=== PATIENT | male | born 1965 | race Caucasian/White ===

== ENCOUNTER → 2024-06-27 10:53 | Outpatient (BNVA) | payer OTHER, SELFPAY | PROVIDERS: PCP Internal Medicine Geriatric Medicine; Visit Provider Internal Medicine | DX: S20.211A Contusion of right front wall of thorax, initial encounter (principal); W01.198A Fall on same level from slipping, tripping and stumbling with subsequent striking against other object, initial encounter | CPT/HCPCS: 71101; 99203 ==

== ENCOUNTER → 2024-08-03 10:05 | Outpatient (BNVA) | payer OTHER, SELFPAY | PROVIDERS: PCP Internal Medicine Geriatric Medicine; Visit Provider Internal Medicine | DX: S20.211D Contusion of right front wall of thorax, subsequent encounter (principal); W01.198D Fall on same level from slipping, tripping and stumbling with subsequent striking against other object, subsequent encounter | CPT/HCPCS: 99213 ==

== ENCOUNTER 2024-08-05 22:02 | Emergency (ER) | payer OTHER, SELFPAY ==
[2024-08-05 22:21] VITALS: BP 121/84; PULSE 89; RESP 20; TEMP 36.9; O2SAT 97; BMI 47.1
[2024-08-05] MEDS: Doxycycline Monohydrate 100 MG CAPSULE PO (23:03)
[2024-08-05] MEDS: cephALEXin 500 MG CAPSULE PO (23:03)
[2024-08-05] MEDS: Lidocaine HCl 1 % MPF 5 ML VIAL INFILTRATI (23:03)
--- NOTE | 2024-08-05 23:10 | PC.NURSE ---
this rn assumed care of pt from previous rn @ 2300. pt medicated prior to discharge provided with work note and discharge packet verbalized understanding of discharge plan ambulatory at discharge
[2024-08-05 23:11] VITALS: BP 121/84; PULSE 89; RESP 20; TEMP 36.9; O2SAT 97
--- NOTE | 2024-08-06 01:47 | ED_ITS ---
HPI - Skin/Abscess/Foreign Bdy General Chief complaint: Skin/Abscess/Foreign Body Stated complaint: cyst left testicle Time Seen by Provider: 08/05/24 22:29 Source: patient Mode of arrival: ambulatory Limitations: no limitations History of Present Illness ED Provider: HPI narrative: Patient noticed small ingrown hair on the left side of the scrotum few days ago comes here with increased swelling and pain no fever no chills no history of similar abscesses in the past Related Data Previous Rx's ?Medication ?Instructions ?Recorded cephalexin 500 mg capsule 500 mg PO QID 10 days #40 caps 08/05/24 doxycycline hyclate 100 mg tablet 100 mg PO BID #20 tabs 08/05/24 Allergies Allergy/AdvReac Type Severity Reaction Status Date / Time No Known Allergies Allergy Verified 08/05/24 22:24 Review of Systems 2 Review of Systems: Yes all other systems are reviewed and are negative PMFSH Social History Social History Advance Directives: No Advance Directives Information Provided: Yes Physical Exam 2 Vital Signs: Vital Signs: Last Vital Signs Temp 98.5 F 08/05/24 23:11 Pulse 89 08/05/24 23:11 Resp 20 08/05/24 23:11 BP 121/84 08/05/24 23:11 Pulse Ox 97 08/05/24 23:11 O2 Del Method Room Air 08/05/24 23:11 BMI result Body Mass Index 47.1 : Male genitals images: 1. 2 x 3 cm indurated area testicle separate epididymis nontender Medications Administered Discontinued Medications Generic Name Dose Route Start Last Admin Trade Name Freq PRN Reason Stop Dose Admin Cephalexin HCl 500 mg 08/05/24 22:38 08/05/24 23:03 Cephalexin 500 Mg Capsule PO 08/05/24 22:39 500 mg ONCE ONE Administration Doxycycline Monohydrate 100 mg 08/05/24 22:38 08/05/24 23:03 Doxycycline Monohydrate 100 Mg Capsule PO 08/05/24 22:39 100 mg ONCE ONE Administration Lidocaine HCl 5 ml 08/05/24 22:38 08/05/24 23:03 Lidocaine Hcl 1 % Mpf 5 Ml Vial INFILTRATI 08/05/24 22:39 5 ml ONCE ONE Administration Procedures Abscess I/D Site: scrotum Side (if applicable): left Local Anesthetic: lidocaine 1% Amount of anesthesia used (mL): 3 Technique: incised with blade Amount of fluid expressed (mL): 1 Sent for culture/gram staining?: No Irrigation: No Packing used?: iodoform Discharge Plan Discharge Clinical Impression: Abscess of scrotal wall Patient Disposition: Home, Self-Care Instructions: Abscess Incision and Drainage (DC) Additional Instructions: Local care as advised Packing removal in 2 days Take antibiotic as prescribed Follow up with your PCP if not better Prescriptions: New cephalexin 500 mg capsule 500 mg PO QID 10 Days Qty: 40 0RF doxycycline hyclate 100 mg tablet 100 mg PO BID Qty: 20 0RF Stand Alone Forms: Work/School Release Interventions: ED Discharge Assessment Last Done: 08/05/24 23:11 Discharge Date/Time: 08/05/24 23:12 Print Language: Pakistani
== END 2024-08-05 23:12 | disposition home or self-care (01) ==
PROVIDERS: Emergency Provider Internal Medicine; PCP Physician Assistant Medical
DX: N49.2 Inflammatory disorders of scrotum (principal)
CPT/HCPCS: 55100; 99282; 99283; 99284; 99292; J2003

== ENCOUNTER 2024-08-07 13:39 | Emergency (ER) | payer OTHER, SELFPAY ==
--- NOTE | ~2024-08-07 | CT_ITS ---
EXAMINATION: CT PELVIS WITH CONTRAST CLINICAL INFORMATION: Left-sided scrotal abscess COMPARISON: None available. TECHNIQUE: Helical scanning was performed with submillimeter collimation through the pelvis with the use of oral contrast and during bolus intravenous injection of 85 mL of Omnipaque 350 intravenous contrast. Sagittal and coronal multiplanar 2-D reconstructions were obtained. This CT examination was performed using dose optimization techniques as appropriate, variously including the following: *Automated exposure control *Adjustment of mA and/or kV according to patient size (this includes techniques or standardized protocols for targeted exams where dose is matched to indication/reason for exam; i.e. extremities or head) *Use of iterative reconstruction technique DLP: 445 mGy-cm FINDINGS: PELVIS: There is no pelvic mass. No focal inflammation or fluid collection. No abscess. There are scattered diverticula of the sigmoid and left colon but no evidence of diverticulitis. No acute changes of the bowel. Bladder unremarkable. No pelvic lymphadenopathy or mass. Small volume of ossifications of the wall of the distal aorta and iliac arteries. No aneurysm. No abnormal enhancing lesion. No inguinal or ventral wall hernia. OSSEOUS STRUCTURES: Mild degenerative changes lower lumbar spine. No acute osseous abnormality. CT/CT pelvis w IV con IMPRESSION: 1. No acute abnormality of the pelvis. No abscess. 2. Diverticulosis of the colon. No acute change of the bowel. Electronically signed by: Jordan Bueno MD 08/07/2024 05:54 PM [facility]
--- NOTE | ~2024-08-07 | US_ITS ---
EXAMINATION: US SCROTUM CLINICAL INFORMATION: Left testicular swelling.. COMPARISON: None available. TECHNIQUE: A sonogram of the scrotum was performed assessing barclay-scale appearance and color Doppler flow. Spectral Doppler analysis of the arterial and venous flow were performed in the testes bilaterally. FINDINGS: RIGHT: Right testicle measures 4.4 x 2.6 x 3.4 cm, volume 20.1 mL. No focal testicular parenchymal lesions are visualized. Spectral Doppler analysis of the arterial and venous flow is normal in the right testis. Right epididymal head is normal in size. No right hydrocele or varicocele is seen. Right epididymal Doppler flow is normal. LEFT: Left testicle measures 3.9 x 2.3 x 2.8 cm, volume 13.0 mL. No focal testicular parenchymal lesions are visualized. Spectral Doppler analysis of the arterial and venous flow is normal in the left testis. Left epididymal head is normal in size. There is anechoic cyst in the apical head measuring 0.3 x 0.4 x 0.3 cm No left hydrocele or varicocele is seen. Left epididymal Doppler flow is normal. US/US scrotum doppler IMPRESSION: 1. Small left epididymal head cyst. 2. The testes and epididymis are unremarkable. Electronically signed by: Vernon Cody MD 08/07/2024 07:11 PM [facility]
--- NOTE | ~2024-08-07 | US_ITS ---
EXAMINATION: US SCROTUM CLINICAL INFORMATION: Left testicular swelling.. COMPARISON: None available. TECHNIQUE: A sonogram of the scrotum was performed assessing barclay-scale appearance and color Doppler flow. Spectral Doppler analysis of the arterial and venous flow were performed in the testes bilaterally. FINDINGS: RIGHT: Right testicle measures 4.4 x 2.6 x 3.4 cm, volume 20.1 mL. No focal testicular parenchymal lesions are visualized. Spectral Doppler analysis of the arterial and venous flow is normal in the right testis. Right epididymal head is normal in size. No right hydrocele or varicocele is seen. Right epididymal Doppler flow is normal. LEFT: Left testicle measures 3.9 x 2.3 x 2.8 cm, volume 13.0 mL. No focal testicular parenchymal lesions are visualized. Spectral Doppler analysis of the arterial and venous flow is normal in the left testis. Left epididymal head is normal in size. There is anechoic cyst in the apical head measuring 0.3 x 0.4 x 0.3 cm No left hydrocele or varicocele is seen. Left epididymal Doppler flow is normal. US/US scrotum IMPRESSION: 1. Small left epididymal head cyst. 2. The testes and epididymis are unremarkable. Electronically signed by: Vernon Cody MD 08/07/2024 07:11 PM EST
[2024-08-07 13:44] VITALS: BP 116/82; PULSE 86; RESP 16; TEMP 36.6; O2SAT 95; BMI 35.1
--- NOTE | 2024-08-07 13:55 | ED_ITS ---
HPI - General Adult General Chief complaint: Skin/Abscess/Foreign Body Stated complaint: Abscess Time Seen by Provider: 08/07/24 15:37 Related Data Previous Rx's ?Medication ?Instructions ?Recorded cephalexin 500 mg capsule 500 mg PO QID 10 days #40 caps 08/05/24 doxycycline hyclate 100 mg tablet 100 mg PO BID #20 tabs 08/05/24 Allergies Allergy/AdvReac Type Severity Reaction Status Date / Time No Known Allergies Allergy Verified 08/07/24 13:55 [facility] Social History Social History Alcohol intake: current Alcohol intake frequency: a few times a month Smoked in Last 30 Days: No Use of substances other than those prescribed or required for medical reasons: No Advance Directives: No Advance Directives Information Provided: No Do you have a plan to hurt others: No Plan Physical Exam ED Vital Signs: Vital Signs - 24 hr 08/07/24 13:44 08/07/24 15:49 08/07/24 18:30 Temperature 97.9 F 98.1 F 97.8 F Pulse Rate 86 73 69 Respiratory Rate 16 18 18 Blood Pressure 116/82 129/80 106/75 Pulse Oximetry 95 98 99 Oxygen Delivery Method Room Air Room Air Room Air BMI result Body Mass Index 35.1 Course Course Course Narrative: RME, this is a rapid medical exam performed by Oleg Mcnamara please refer to primary provider for complete H&P- 59-year-old male presents for evaluation of a left scrotal abscess. He was seen here 2 days ago and had an I and D. He followed up with his PCP day and was sent back for further evaluation. The patient is taking doxycycline and cephalexin without improvement. He reports that he feels like the abscess is traveling up the scrotum. Plan for labs, urinalysis, CT scan of the of the pelvis with IV contrast Medications Administered Discontinued Medications Generic Name Dose Route Start Last Admin Trade Name Freq PRN Reason Stop Dose Admin Hydromorphone HCl 0.5 mg 08/07/24 15:55 08/07/24 16:28 Hydromorphone Hcl 0.5 Mg/0.5 Ml Syringe IVPUSH 08/07/24 15:56 Not Given ONCE ONE Protocol Iohexol 100 ml 08/07/24 16:06 08/07/24 16:06 Iohexol 350 Mg/Ml 100 Ml Infus..Btl IV 08/07/24 16:07 85 ml ONCE ONE Administration Medical Decision Making Lab Data 08/07/24 15:16 08/07/24 15:16 Labs: Lab Results 08/07/24 08/07/24 Range/Units 15:16 15:23 WBC 5.9 (4.8-10.8) X10*3/uL RBC 4.96 (4.60-5.80) X10*6/uL Hgb 14.1 (14.0-18.0) g/dl Hct 42.7 (42.0-52.0) % MCV 86.1 (80.0-98.0) fL MCH 28.4 (27.0-33.0) pg MCHC 33.0 (31.0-36.0) g/dl RDW 13.6 (11.0-16.0) % Plt Count 192 (160-400) X10*3/uL MPV 9.9 (9.4-12.4) fL Immature Gran % (Auto) 0.3 (0.0-0.4) % Neut % (Auto) 61.7 (45-73) % Lymph % (Auto) 25.3 (20-40) % [place] % (Auto) 9.1 (2-11) % Eos % (Auto) 2.9 (0-4) % Baso % (Auto) 0.7 (0-2) % Lymph # (Auto) 1.5 (1.2-4.9) X10*3/uL [place] # (Auto) 0.5 (0.1-1.2) X10*3/uL Eos # (Auto) 0.2 (0.0-0.4) X10*3/uL Baso # (Auto) 0.0 (0.0-0.2) X10*3/uL Abs Immat Gran (auto) 0.02 (0.00-0.03) X10*3/uL Absolute Neuts (auto) 3.7 (2.0-8.3) x10*3/uL Absolute Nucleated RBC 0.000 (0.0-0.012) X10*3/uL Nucleated RBC % (auto) 0.0 (0.0-0.2) /100WBC Sodium 140 (135-145) mmol/L Potassium 4.1 (3.3-5.1) mmol/L Chloride 108 (96-108) mmol/L Carbon Dioxide 25 (22-29) mmol/L Anion Gap 11 L (12-20) BUN 18 H (9-16) mg/dL Creatinine 1.03 (0.5-1.4) mg/dL Estim Creat Clear Calc 94.6 Estimated GFR > 60 Random Glucose 106 (60-115) mg/dL Lactic Acid 0.7 (0.5-2.0) mmol/L Calcium 10.0 (8.4-10.2) mg/dL Total Bilirubin 0.2 (0.0-1.0) mg/dL AST 29 (5-37) U/L ALT 42 H (0-40) U/L Alkaline Phosphatase 89 (39-117) U/L Total Protein 7.3 (6.5-8.0) g/dL Albumin 4.3 (3.5-5.0) g/dL Lipase 25 (8-78) U/L Urine Color Dark Yellow Urine Appearance Clear Urine pH 5.0 (5.0-9.0) Ur Specific [place] >= 1.030 H (1.005-1.025) Urine Protein Trace (Neg-Trace) mg/dL Urine Glucose (UA) Negative (Negative) mg/dL Urine Ketones Trace (Negative) mg/dL Urine Blood Negative (Negative) Urine Nitrite Negative (Negative) Ur Leukocyte Esterase Negative (Negative) Urine RBC 0-2 (0-2) /HPF Urine WBC 0-5 (0-5) /HPF Ur Squamous Epith Cells 0-2 (0-2) /HPF Urine Bacteria None Seen (None Seen) Hyaline Casts 0-2 (0-2) /LPF Discharge Plan Discharge Clinical Impression: Cellulitis, Abscess of skin or subcutaneous tissue Patient Disposition: Home, Self-Care Instructions: Cellulitis (ED), Abscess Follow-up (ED), Abscess Incision and Drainage (DC), Warm Compress or Soak (ED) Additional Instructions: warm soak and elevate. If he develops fever worsening condition please come back to the ED immediately. Prescriptions: No Action cephalexin 500 mg capsule 500 mg PO QID 10 Days Qty: 40 0RF doxycycline hyclate 100 mg tablet 100 mg PO BID Qty: 20 0RF Referrals: Garcia Stoddard PA [Primary Care Provider] - 2 days Stand Alone Forms: Work/School Release Print Language: Serbian
[2024-08-07 15:24] LABS: MANUAL DIFF FLAG NO
[2024-08-07 15:28] LABS: Basophils Percent Auto 0.7 % (0-2); Eosinophils Absolute Auto 0.2 X10*3/uL (0.0-0.4); Eosinophils Percent Auto 2.9 % (0-4); Hematocrit 42.7 % (42.0-52.0); Hemoglobin 14.1 g/dl (14.0-18.0); Imm Gran Abs Auto 0.02 X10*3/uL (0.00-0.03); Imm Gran Pct Auto 0.3 % (0.0-0.4); Lymphocytes Absolute Auto 1.5 X10*3/uL (1.2-4.9); Lymphocytes Percent Auto 25.3 % (20-40); Mean Corpuscular Hemoglobin 28.4 pg (27.0-33.0); Mean Corpuscular Volume 86.1 fL (80.0-98.0); Mean Platelet Volume 9.9 fL (9.4-12.4); Monocytes Absolute Auto 0.5 X10*3/uL (0.1-1.2); Monocytes Percent Auto 9.1 % (2-11); Neutrophils Absolute Auto 3.7 x10*3/uL (2.0-8.3); Neutrophils Percent Auto 61.7 % (45-73); Platelet Count 192 X10*3/uL (160-400); Red Blood Count 4.96 X10*6/uL (4.60-5.80); Red Cell Distribution Width 13.6 % (11.0-16.0); White Blood Count 5.9 X10*3/uL (4.8-10.8)
[2024-08-07 15:46] LABS: Lactic Acid 0.7 mmol/L (0.5-2.0)
[2024-08-07 15:49] VITALS: BP 129/80; PULSE 73; RESP 18; TEMP 36.7; O2SAT 98
[2024-08-07 15:53] LABS: Appearance Urine Clear; Color Urine Dark Yellow; Glucose Urine UA Negative (Negative); Leukocyte Esterase Urine Negative (Negative); Nitrite Urine Negative (Negative); Specific Gravity - Urine >= 1.030 (1.005-1.025); Urine Blood Negative (Negative); Urine Ketones Trace mg/dL (Negative); Urine Protein Trace mg/dL (Neg-Trace)
[2024-08-07 15:55] LABS: Bacteria Urine None Seen (None Seen); Hyaline Casts Urine 0-2 /LPF (0-2); RBC Urine 0-2 /HPF (0-2); Squamous Epithelial Cell Urine 0-2 /HPF (0-2); WBC Urine 0-5 /HPF (0-5)
--- NOTE | 2024-08-07 15:55 | PC.NURSE ---
Pt tolerated exam from Dr Gaytan. Awaits CT and U/S.
[2024-08-07 15:56] LABS: Albumin Level 4.3 g/dL (3.5-5.0); Anion Gap 11 (12-20); Aspartate Amino Transferase 29 U/L (5-37); Bilirubin Total 0.2 mg/dL (0.0-1.0); Blood Urea Nitrogen 18 mg/dL (9-16); Carbon Dioxide 25 mmol/L (22-29); Chloride 108 mmol/L (96-108); Creatinine Clr Calc Pharmacy 94.6; Estimated Glomerular Filt Rate > 60; Glucose Random 106 mg/dL (60-115); Lipase 25 U/L (8-78); Potassium 4.1 mmol/L (3.3-5.1); Sodium 140 mmol/L (135-145); Total Protein 7.3 g/dL (6.5-8.0)
--- NOTE | 2024-08-07 15:56 | ED.GENADULT ---
HPI - General Adult General Chief complaint: Skin/Abscess/Foreign Body Stated complaint: Abscess Time Seen by Provider: 08/07/24 15:37 History of Present Illness HPI narrative: Patient is a 59-year-old male presents today with having had a abscess drained 2 days prior. Subsequently presented with increasing swelling. Patient from home. Had abscess was 7 days patient is currently on antibiotics just started yesterday doxycycline and Keflex. Patient denies any fever chills. No chest pain or shortness breath no systemic complaints. No difficulty urinating. No difficulty with bowel movement. Noticed increased swelling went to see his primary physician sent to the ED for further eval Related Data Previous Rx's ?Medication ?Instructions ?Recorded cephalexin 500 mg capsule 500 mg PO QID 10 days #40 caps 08/05/24 doxycycline hyclate 100 mg tablet 100 mg PO BID #20 tabs 08/05/24 Allergies Allergy/AdvReac Type Severity Reaction Status Date / Time No Known Allergies Allergy Verified 08/07/24 13:55 Review of Systems Review of Systems: no fever no chills no chest pain or shortness of breath Yes all other systems are reviewed and are negative [facility] Past Medical History Attestation statement: The following information was validated with the patient. Social History Social History Alcohol intake: current Alcohol intake frequency: a few times a month Smoked in Last 30 Days: No Use of substances other than those prescribed or required for medical reasons: No Advance Directives: No Advance Directives Information Provided: No Do you have a plan to hurt others: No Plan Physical Exam ED Vital Signs: Vital Signs - 24 hr 08/07/24 13:44 08/07/24 15:49 08/07/24 18:30 Temperature 97.9 F 98.1 F 97.8 F Pulse Rate 86 73 69 Respiratory Rate 16 18 18 Blood Pressure 116/82 129/80 106/75 Pulse Oximetry 95 98 99 Oxygen Delivery Method Room Air Room Air Room Air BMI result Body Mass Index 35.1 Appearance: Alert. Oriented X3. No acute distress. Eyes: Pupils equal, round and reactive to light. ENT: Pharynx normal. Neck: Normal inspection. Neck supple. No lymph nodes noted. No crepitus CVS: Normal heart rate and rhythm. Pulses normal. Normal S1 and S2 Respiratory: No respiratory distress. Breath sounds normal. No Wheezing. No rales Abdomen: Soft and nontender. No rigidity. No distention. good BS x4 positive swelling in the scrotum worse on the left side. There is no testicular tenderness. Cremasteric reflexes intact. There is purulent material being drained from packing. There is no fluctuance on palpation. Skin: Skin warm and dry. Normal skin color. Normal skin turgor. Extremities: No lower extremity edema. Neurovascular intact to all extremities. No Lacerations. No Rash Neuro: Oriented X 3. No motor deficit. No sensory deficit. Moving all extermities. No slurred speech Medications Administered Discontinued Medications Generic Name Dose Route Start Last Admin Trade Name Freq PRN Reason Stop Dose Admin Hydromorphone HCl 0.5 mg 08/07/24 15:55 08/07/24 16:28 Hydromorphone Hcl 0.5 Mg/0.5 Ml Syringe IVPUSH 08/07/24 15:56 Not Given ONCE ONE Protocol Iohexol 100 ml 08/07/24 16:06 08/07/24 16:06 Iohexol 350 Mg/Ml 100 Ml Infus..Btl IV 08/07/24 16:07 85 ml ONCE ONE Administration Medical Decision Making Medical Decision Making [facility] Narrative: Positive swelling to the scrotum. There was an abscess that was drained. Patient had the packing in place. Complaining of pain localized to the area. Was followed by the primary care physician sent in for further evaluation. Patient's white count is normal. Lactate is normal. CT scan showed no evidence of subcutaneous air no evidence for Wendi's. Patient has no significant past medical issues. Patient's ultrasound showed no large abscesses. Testicular exam was normal. The white count is normal. Just started on antibiotic last night. Patient is on doxycycline and on Keflex. Will have patient closely follow on an outpatient basis. Nothing to drain at this point in time. In stable condition. Differential Diagnosis Differential Diagnoses: The differential diagnosis associated with the presentation includes Cellulitis, abscess Admission/Observation Consideration of admission/observation: Escalation of care including admission/observation considered considered admission but given patient's overall well appearance no need to stay. Lab Data [facility] Lab Attestation statement: I reviewed the patient's lab results. 08/07/24 15:16 08/07/24 15:16 Labs: Lab Results 08/07/24 08/07/24 Range/Units 15:16 15:23 WBC 5.9 (4.8-10.8) X10*3/uL RBC 4.96 (4.60-5.80) X10*6/uL Hgb 14.1 (14.0-18.0) g/dl Hct 42.7 (42.0-52.0) % MCV 86.1 (80.0-98.0) fL MCH 28.4 (27.0-33.0) pg MCHC 33.0 (31.0-36.0) g/dl RDW 13.6 (11.0-16.0) % Plt Count 192 (160-400) X10*3/uL MPV 9.9 (9.4-12.4) fL Immature Gran % (Auto) 0.3 (0.0-0.4) % Neut % (Auto) 61.7 (45-73) % Lymph % (Auto) 25.3 (20-40) % [place] % (Auto) 9.1 (2-11) % Eos % (Auto) 2.9 (0-4) % Baso % (Auto) 0.7 (0-2) % Lymph # (Auto) 1.5 (1.2-4.9) X10*3/uL [place] # (Auto) 0.5 (0.1-1.2) X10*3/uL Eos # (Auto) 0.2 (0.0-0.4) X10*3/uL Baso # (Auto) 0.0 (0.0-0.2) X10*3/uL Abs Immat Gran (auto) 0.02 (0.00-0.03) X10*3/uL Absolute Neuts (auto) 3.7 (2.0-8.3) x10*3/uL Absolute Nucleated RBC 0.000 (0.0-0.012) X10*3/uL Nucleated RBC % (auto) 0.0 (0.0-0.2) /100WBC Sodium 140 (135-145) mmol/L Potassium 4.1 (3.3-5.1) mmol/L Chloride 108 (96-108) mmol/L Carbon Dioxide 25 (22-29) mmol/L Anion Gap 11 L (12-20) BUN 18 H (9-16) mg/dL Creatinine 1.03 (0.5-1.4) mg/dL Estim Creat Clear Calc 94.6 Estimated GFR > 60 Random Glucose 106 (60-115) mg/dL Lactic Acid 0.7 (0.5-2.0) mmol/L Calcium 10.0 (8.4-10.2) mg/dL Total Bilirubin 0.2 (0.0-1.0) mg/dL AST 29 (5-37) U/L ALT 42 H (0-40) U/L Alkaline Phosphatase 89 (39-117) U/L Total Protein 7.3 (6.5-8.0) g/dL Albumin 4.3 (3.5-5.0) g/dL Lipase 25 (8-78) U/L Urine Color Dark Yellow Urine Appearance Clear Urine pH 5.0 (5.0-9.0) Ur Specific [place] >= 1.030 H (1.005-1.025) Urine Protein Trace (Neg-Trace) mg/dL Urine Glucose (UA) Negative (Negative) mg/dL Urine Ketones Trace (Negative) mg/dL Urine Blood Negative (Negative) Urine Nitrite Negative (Negative) Ur Leukocyte Esterase Negative (Negative) Urine RBC 0-2 (0-2) /HPF Urine WBC 0-5 (0-5) /HPF Ur Squamous Epith Cells 0-2 (0-2) /HPF Urine Bacteria None Seen (None Seen) Hyaline Casts 0-2 (0-2) /LPF Radiology Impression Discussion of test interpretation with radiology: I have reviewed the radiologist's reading. ( I reviewed radiology's reading of the CT scan and of the ultrasound) Discharge Plan Discharge Clinical Impression: Cellulitis, Abscess of skin or subcutaneous tissue Patient Disposition: Home, Self-Care Instructions: Cellulitis (ED), Warm Compress or Soak (ED), Abscess Incision and Drainage (DC), Abscess Follow-up (ED) Additional Instructions: warm soak and elevate. If he develops fever worsening condition please come back to the ED immediately. Prescriptions: No Action cephalexin 500 mg capsule 500 mg PO QID 10 Days Qty: 40 0RF doxycycline hyclate 100 mg tablet 100 mg PO BID Qty: 20 0RF Referrals: Garcia Stoddard PA [Primary Care Provider] - 2 days Stand Alone Forms: Work/School Release Print Language: Urdu
[2024-08-07] MEDS: iohexoL 350 MG/ML 100 ML INFUS..BTL IV (16:06)
[2024-08-07 16:07] LABS: Alanine Aminotransferase 42 U/L (0-40); Alkaline Phosphatase 89 U/L (39-117)
[2024-08-07 18:30] VITALS: BP 106/75; PULSE 69; RESP 18; TEMP 36.6; O2SAT 99
--- NOTE | 2024-08-07 18:32 | PC.NURSE ---
no change in assessment. awaits U/S read.
[2024-08-07 19:41] VITALS: BP 106/75; PULSE 69; RESP 18; TEMP 36.6; O2SAT 99
== END 2024-08-07 19:42 | disposition home or self-care (01) ==
PROVIDERS: Physician Assistant; Emergency Provider Emergency Medicine Emergency Medical Services; PCP Physician Assistant Medical
DX: N49.2 Inflammatory disorders of scrotum (principal); N50.82 Scrotal pain; R10.2 Pelvic and perineal pain; Z79.899 Other long term (current) drug therapy
CPT/HCPCS: 36415; 55100; 72193; 76870; 80053; 81001; 83605; 83690; 85025; 87040; 93975; 99284; Q9967

== ENCOUNTER 2024-12-31 23:27 | Emergency (ER) | payer OTHER, SELFPAY ==
--- NOTE | ~2024-12-31 | XR_ITS ---
CLINICAL HISTORY: laceration check for fb 3 view right foot Comparison: None Findings: Bones intact. No dislocations. No significant arthritic change or erosions. No ankle effusion. No radiopaque foreign body. Small calcaneal spurs. IMPRESSION: No radiopaque foreign body. This document has been electronically signed by: Paul Canales MD on 01/01/2025 01:03:04
[2024-12-31 23:38] VITALS: BP 132/82; PULSE 72; RESP 18; TEMP 36.2; O2SAT 98; BMI 35.4
[2025-01-01 00:58] VITALS: BP 122/67; PULSE 72; RESP 16; TEMP 36.3; O2SAT 96
[2025-01-01] MEDS: Lidocaine HCl 1%/Epi 1:100,000 10 ML VIAL INFILTRATI (02:40)
--- NOTE | 2025-01-01 03:30 | ED.GENADULT ---
HPI - General Adult General Chief complaint: Wound/Laceration Stated complaint: cut on right foot Time Seen by Provider: 01/01/25 01:48 Source: patient Limitations: no limitations History of Present Illness ED Provider: Kim Fuentes PA-C HPI narrative: 59-year-old male presents with right foot laceration prior to arrival. 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 Not on blood thinners, unsure when his last tetanus was. Related Data Previous Rx's ?Medication ?Instructions ?Recorded cephalexin 500 mg capsule 500 mg PO QID 10 days #40 caps 08/05/24 doxycycline hyclate 100 mg tablet 100 mg PO BID #20 tabs 08/05/24 Allergies Allergy/AdvReac Type Severity Reaction Status Date / Time No Known Allergies Allergy Verified 12/31/24 23:40 Review of Systems Review of Systems: Yes all other systems are reviewed and are negative Constitutional: Constitutional: Denies fever(s) Musculoskeletal: Musculoskeletal: Denies arthralgias and Denies joint swelling Integumentary/Breasts: Skin/Breast: Reports wounds PMFSH Past Medical History Attestation statement: The following information was validated with the patient. Social History Social History Alcohol intake: current Alcohol intake frequency: does not drink Smoked in Last 30 Days: No Use of substances other than those prescribed or required for medical reasons: No Advance Directives: No Advance Directives Information Provided: Yes Do you have a plan to hurt others: No Plan Physical Exam ED Vital Signs: Vital Signs - 24 hr 12/31/24 23:38 01/01/25 00:58 01/01/25 03:42 Temperature 97.1 F 97.4 F 97.5 F Pulse Rate 72 72 71 Respiratory Rate 18 16 16 Blood Pressure 132/82 122/67 118/78 Pulse Oximetry 98 96 96 Oxygen Delivery Method Room Air Room Air Room Air 01/01/25 03:47 Temperature 97.5 F Pulse Rate 71 Respiratory Rate 16 Blood Pressure 118/78 Pulse Oximetry 96 Oxygen Delivery Method Room Air BMI result Body Mass Index 35.4 Const Other: Alert Orientation/consciousness: patient oriented x3 Resp Effort & Inspection: normal respiratory effort Cardio Other: Normal peripheral perfusion Skin Other: Warm dry no rash Neuro General: patient oriented x3, gait normal, no focal motor deficits and CN's II-XI intact bilaterally Extrem Other: Curved laceration on the plantar surface of the right foot, measures approximately 6 cm is superficial not bleeding Psych Other: Cooperative Medications Administered Discontinued Medications Generic Name Dose Route Start Last Admin Trade Name Syeda PRN Reason Stop Dose Admin Diphtheria/Tetanus/Acell Pertussis 0.5 ml 01/01/25 03:30 01/01/25 03:37 Diphth,Pertus(Acell),Tet Adult 0.5 Ml Syringe IM 01/01/25 03:31 0.5 ml .ONCE ONE Administration Lidocaine/Epinephrine 10 ml 01/01/25 02:37 01/01/25 02:40 Lidocaine Hcl 1%/Epi 1:100,000 10 Ml Vial INFILTRATI 01/01/25 02:38 10 ml ONCE ONE Administration Procedures Laceration Laceration 1: Site: other (Foot) Side (If applicable): left Size (cm): 6 Description: other (Curve) Depth: simple, single layer Local Anesthetic: lidocaine 1% and with epi Amount of anesthesia used (mL): 10 Pre-repair: irrigated extensively Skin layer closed with: nylon Size (cm): 3-0 Number of sutures: 13 Technique: simple, interrupted Medical Decision Making Medical Decision Making MDM Narrative: 59-year-old male presents with right foot laceration prior to arrival. 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 Not on blood thinners, unsure when his last tetanus was. No relevant chronic issues History: Per patient I have considered the following differential diagnoses: Laceration, abrasion, fracture, dislocatio, FBn Plan: X-ray obtained from triage there was no communication with the bone, no foreign body, the wound will require simple repair, we will update tetanus I have independently reviewed the following tests X-ray right foot:Findings: Bones intact. No dislocations. No significant arthritic change or erosions. No ankle effusion. No radiopaque foreign body. Small calcaneal spurs. IMPRESSION: No radiopaque foreign body. Discharge Plan Discharge Clinical Impression: Laceration of foot, right Patient Disposition: Home, Self-Care Instructions: Laceration (ED) Additional Instructions: 13 stitches were used to repair the laceration. The x-ray of the foot was normal. See home care instructions. Keep the area clean and dry. Watch for signs of infection which would include redness, swelling, pus draining from the site, red line tracking up into your groin or fever. Otherwise have the stitches removed in 7 days. Prescriptions: No Action cephalexin 500 mg capsule 500 mg PO QID 10 Days Qty: 40 0RF doxycycline hyclate 100 mg tablet 100 mg PO BID Qty: 20 0RF Stand Alone Forms: Work/School Release Interventions: ED Discharge Assessment Last Done: 01/01/25 03:47 Discharge Date/Time: 01/01/25 03:48 Print Language: Micronesian
[2025-01-01] MEDS: Diphth,Pertus(ACell),Tet Adult 0.5 ML SYRINGE IM (03:37)
[2025-01-01 03:42] VITALS: BP 118/78; PULSE 71; RESP 16; TEMP 36.4; O2SAT 96
[2025-01-01 03:47] VITALS: BP 118/78; PULSE 71; RESP 16; TEMP 36.4; O2SAT 96
== END 2025-01-01 03:48 | disposition home or self-care (01) ==
PROVIDERS: Emergency Provider Emergency Medicine; PCP Physician Assistant Medical
DX: S91.311A Laceration without foreign body, right foot, initial encounter (principal); W45.8XXA Other foreign body or object entering through skin, initial encounter; Y93.89 Activity, other specified; Y92.9 Unspecified place or not applicable; Y99.0 Civilian activity done for income or pay; Z23 Encounter for immunization
CPT/HCPCS: 12002; 73630; 90471; 90715; 99284; J2004

== ENCOUNTER → 2025-01-01 | Outpatient (BNV) | payer OTHER, SELFPAY | PROVIDERS: PCP Physician Assistant Medical; Visit Provider Radiology Diagnostic Radiology | DX: S91.311A Laceration without foreign body, right foot, initial encounter (principal) | CPT/HCPCS: 73630 ==